=== PATIENT | female | born 1940 | race Caucasian/White ===

== ENCOUNTER 2016-08-22 02:19 | Emergency (ER) | payer OTHER, MEDICARE ==
[~2016-08-22] VITALS: Ht 154.9 cm; Wt 49.9 kg
[~2016-08-22 02:19] MED LIST: ALENDRONATE SOD70 MG PO; ASPIR 8181 MG PO; CALCIUM600 MG PO; OXYCODONE5 M1 PO; PROAIR HFA0.09 MG/Ac; SPIRIVA 18 MCG18 MCG INH; ZOCOR 40MG TAB40 MG PO
[2016-08-22 02:28] VITALS: BP 147/93
--- NOTE | 2016-08-22 03:14 | ED GI/GU/ABDOMINAL COMPLAINT ---
History of Present Illness General Chief Complaint: Low Back Pain/Injury Stated Complaint: LOWER BACK PAIN\ Source: patient, old records Exam Limitations: no limitations Vital Signs & Intake/Output Vital Signs & Intake/Output Vital Signs Date Time Temp Pulse Resp B/P B/P Pulse O2 O2 Flow FiO2 Mean Ox Delivery Rate 08/22 0250 98 Room Air Room Air 08/23 227 96.3 72 16 147/93 98 Room Air Room Air Allergies Coded Allergies: NO KNOWN ALLERGIES (08/22/16) Reconcile Medications Albuterol Sulfate (Proair Hfa) 0.09 MG/Actuation NIGEL COPD (Reported) Alendronate Sodium 70 MG TAB 1 TAB PO QW BONE (Reported) in the morning, at least 30 minutes before the first food, beverage, or medication of the day Aspirin (Ecotrin) 81 MG TABLET.DR 1 TAB PO DAILY HEART (Reported) Baclofen 10 MG TABLET 1 TAB PO TIDPRN PRN muscle spasm/strain Ibuprofen 600 MG TABLET 1 TAB PO Q6PRN PRN pain with food Ondansetron (Zofran Odt) 4 MG TAB.RAPDIS 1 TAB SL TID PRN nausea Simvastatin (Zocor 40MG Tab) 40 MG TABLET 1 TAB PO QPM CHOLOSTEROL (Reported) Tiotropium Theodosia (Spiriva) 18 MCG CAP.W.DEV 1 CAP INH DAILY COPD (Reported) Tramadol HCl (Ultram) 50 MG TABLET 1-2 TAB PO Q6PRN PRN severe pain Triage Note: 75YO FEMALE TO TRI W/CO LOW BACK PAIN THAT THAT RADIATES TO FLANK AREA. Triage Nurses Notes Reviewed? yes LMP (ages 10-50): post menopausal ? n Is pt currently ? No Onset: Evening Duration: hour(s):, constant, continues in ED Timing: recent history Quality/Severity: aching, sharpness, severe, vomiting Location: left flank, right flank Radiation: epigastric Activities at Onset: rest Prior Abdominal Problems: none Past Sexual History: Unobtainable at this time Modifying Factors: Worsens With: movement. Associated Symptoms: loss of appetite, nausea/vomiting HPI: 6 hours prior to admission patient complains of bilateral low back pain described as severe achy radiating to sites worse with movement turning bending associated with nausea vomiting. She reports going grocery shopping yesterday. She denies fever chills diarrhea abdominal pain chest pain shortness of breath headache dysuria rash bleeding change in bowel bladder habit change in motor sensory function. Past History Travel History Traveled to [place] past 21 day No Medical History Any Pertinent Medical History? 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 No Review of Systems Review of Systems Constitutional: Reports: no symptoms. EENTM: Reports: no symptoms. Respiratory: Reports: no symptoms. Cardiovascular: Reports: no symptoms. GI: Reports: see HPI, nausea, vomiting. Genitourinary: Reports: no symptoms. Musculoskeletal: Reports: see HPI, back pain. Skin: Reports: no symptoms. Neurological/Psychological: Reports: no symptoms. Hematologic/Endocrine: Reports: no symptoms. Immunologic/Allergic: Reports: no symptoms. All Other Systems: Reviewed and Negative Physical Exam Physical Exam General Appearance: well developed/nourished, alert, awake, anxious, severe distress Head: atraumatic, normal appearance Eyes: Bilateral: normal appearance, PERRL, EOMI, normal inspection. Ears, Nose, Throat, Mouth: hearing grossly normal, moist mucous membrane Neck: normal inspection, supple, full range of motion, normal alignment Respiratory: normal breath sounds, chest non-tender, no respiratory distress, quiet respiration, lungs clear Cardiovascular: regular rate/rhythm, normal peripheral pulses, norml femoral pulses equa Peripheral Pulses: 4+ carotid (R), 4+ carotid (L) Gastrointestinal: normal bowel sounds, soft, non-tender, no organomegaly Back: normal inspection, decreased range of motion, no vertebral tenderness Extremities: normal range of motion, no ligament instability Neurologic/Psych: no motor/sensory deficits, awake, alert, oriented x 3, normal gait, normal mood/affect, 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 No Severe Sepsis Present: No Septic Shock Present: No Progress Differential Diagnosis: biliary colic, cholecystitis, diverticulitis, kidney stone Plan of Care: Orders Procedure Date/time Status URINALYSIS 05/05 0258 Complete LIPASE 08/22 257 Complete COMPREHENSIVE METABOLIC PANEL 08/22 257 Complete CBC WITHOUT DIFFERENTIAL 08/22 257 Complete Laboratory Tests 08/22/16 0305: Urinalysis MOD H, Urine Color STRAW, Urine Clarity HAZY H, Urine pH 7.5, Ur Specific [place] 1.020, Urine Protein TRACE H, Urine Ketones TRACE H, Urine Nitrite NEG, Urine Bilirubin NEG, Urine Urobilinogen 0.2, Ur Leukocyte Esterase NEG, Ur Microscopic SEDIMENT EXAMINED, Urine RBC 1-3, Ur Epithelial Cells RARE, Urine Hemoglobin MOD H, Urine Glucose NEG 08/22/16 0300: Anion Gap 10, Estimated GFR > 60, BUN/Creatinine Ratio 21.7, Glucose 132 H, Calcium 9.2, Total Bilirubin 1.0, AST 22, ALT 43, Alkaline Phosphatase 43, Total Protein 6.8, Albumin 4.3, Globulin 2.5, Albumin/Globulin Ratio 1.7, Lipase 115, CBC w Diff NO MAN DIFF REQ, RBC 4.55, MCV 90.7, MCH 29.9, RDW 12.8, MPV 7.4, Gran % 81.9 H, Lymphocytes % 12.9 L, Monocytes % 4.5, Eosinophils % 0.4, Basophils % 0.3, Absolute Granulocytes 8.1 H, Absolute Lymphocytes 1.3, Absolute Monocytes 0.4, Absolute Eosinophils 0, Absolute Basophils 0, PUBS MCHC 32.9 L Diagnostic Imaging: Viewed by Me: CT Scan. Discussed w/RAD: CT Scan. Radiology Impression: 1. No acute findings identified in the abdomen/pelvis. 2. Borderline enlarged lymph node adjacent to the right common iliac artery, nonspecific. 3. Cholelithiasis. 4. Colonic diverticulosis. Initial ED EKG: none Departure Departure Time of Disposition: 511 Disposition: HOME OR SELF CARE Condition: Stable Clinical Impression Primary Impression: Acute low back pain Qualifiers: Back pain laterality: bilateral Sciatica presence: without sciatica Qualified Code: M54.5 - Low back pain Secondary Impressions: Gallstones Referrals: PRIYANK BROWN,JORDAN Griffin (PCP/Family) Departure Forms: Customer Survey General Discharge Information Prescriptions: Current Visit Scripts Baclofen 1 TAB PO TIDPRN PRN muscle spasm/strain #30 TAB Ondansetron (Zofran Odt) 1 TAB SL TID PRN nausea #15 TAB Ibuprofen 1 TAB PO Q6PRN PRN pain #50 TAB with food Tramadol HCl (Ultram) 1-2 TAB PO Q6PRN PRN severe pain #30 TAB
[2016-08-22 03:19] LABS: ABSOLUTE BASOPHIL COUNT 0 /CUMM (0.0-0.2); ABSOLUTE EOSINOPHIL COUNT 0 /CUMM (0.0-0.7); ABSOLUTE GRANULOCYTE CT 8.1 /CUMM (1.4-6.5); ABSOLUTE LYMPH COUNT 1.3 /CUMM (1.2-3.4); ABSOLUTE MONOCYTE COUNT 0.4 /CUMM (0.10-0.60); BASOPHIL % 0.3 % (0.0-2.0); EOSINOPHIL % 0.4 % (0-5); GRANULOCYTE % 81.9 % (42.2-75.2); HEMATOCRIT 41.3 % (37-47); MEAN CORPUSCULAR HGB 29.9 PG (27.0-31.0); MEAN CORPUSCULAR HGB CONC 32.9 G/DL (33.0-37.0); MEAN CORPUSCULAR VOLUME 90.7 FL (81.0-99.0); MEAN PLATELET VOLUME 7.4 FL (7.4-10.4); PLATELET COUNT 242 /CUMM (130-400); RBC DISTRIBUTION WIDTH 12.8 % (11.5-14.5); RED BLOOD CELL CT 4.55 /CUMM (4.20-5.40); WHITE BLOOD CELL COUNT 9.8 /CUMM (4.8-10.8)
--- NOTE | 2016-08-22 04:57 | CT SCAN REPORT ---
EXAMINATION: CT ABDOMEN AND PELVIS WITHOUT CONTRAST CLINICAL INFORMATION: Bilateral flank pain with nausea/vomiting, history of T7 compression fracture COMPARISON: CT pelvis 09/28/2008 TECHNIQUE: Multidetector volumetric imaging was performed from the superior aspect of the liver through the pubic symphysis. Sagittal and coronal reformatted images were obtained on the technologist's workstation. DLP: 2-6.64 mGy-cm FINDINGS: LUNG BASES: The visualized lung bases are unremarkable. LIVER, GALLBLADDER, AND BILIARY TREE: The liver is normal in size, shape, and attenuation. There is a lateral left hepatic lobe cyst measuring approximately 3.0 cm in diameter. No biliary ductal dilatation is present. There is suspected layering cholelithiasis in the gallbladder. PANCREAS: Unremarkable. SPLEEN: Unremarkable. ADRENAL GLANDS: Unremarkable. KIDNEYS AND URETERS: The kidneys are normal in size, shape, and attenuation. No hydronephrosis, hydroureter, or calculi seen. No perinephric stranding. BLADDER: Unremarkable. GASTROINTESTINAL TRACT: Colonic diverticulosis is noted. No significant bowel wall thickening is seen. No evidence of bowel obstruction. Patient is suspected to be status post appendectomy ABDOMINAL WALL: No significant hernia is appreciated. LYMPH NODES: There is a borderline lymph node adjacent to the right common iliac artery on image 41/77, nonspecific. VASCULAR: There is atherosclerotic calcification along the aorta. PELVIC VISCERA: Patient is suspected to be status post hysterectomy. OSSEOUS STRUCTURES: Degenerative changes are noted, most prominently at L5-S1 including vacuum disc phenomenon. IMPRESSION: 1. No acute findings identified in the abdomen/pelvis. 2. Borderline enlarged lymph node adjacent to the right common iliac artery, nonspecific. 3. Cholelithiasis. 4. Colonic diverticulosis.
[2016-08-22] MEDS ORDERED: BACLOFEN10 M1 PO ×2 (05:14→05:29)
[2016-08-22] MEDS ORDERED: IBUPROFEN600 M1 PO ×2 (05:14→05:29)
[2016-08-22] MEDS ORDERED: ULTRAM50 M1 PO ×2 (05:14→05:29)
[2016-08-22] MEDS ORDERED: ZOFRAN ODT4 M1 SL ×2 (05:15→05:29)
[2016-09-08] MEDS ORDERED: CLONAZEPAM0.5 M2 PO (12:35)
[2016-09-08] MEDS ORDERED: INCRUSE ELLI62.5 MCG (12:35)
== END 2016-08-22 05:38 ==
LOC: ERH 02:19
PROVIDERS: Emergency Medicine
DX: K80.20 Calculus of gallbladder without cholecystitis without obstruction (principal)
CPT/HCPCS: 74176; 81001; 96361; 96374; 96375; J1885; J2405

== ENCOUNTER → 2016-09-10 | Day surgery (SDC) | payer OTHER, MEDICARE ==
[~2016-09-10] VITALS: Ht 154.9 cm; Wt 49.9 kg
[~2016-09-10] MED LIST changes: +BACLOFEN10 M1 PO; +CLONAZEPAM0.5 M2 PO; +IBUPROFEN600 M1 PO; +INCRUSE ELLI62.5 MCG; +ULTRAM50 M1 PO; +ZOFRAN ODT4 M1 SL
--- NOTE | 2016-09-10 12:32 | Operative Report ---
Operative/Inv Procedure Report Surgery Date: 09/10/16 Name of Procedure: Laparoscopic cholecystectomy Pre-Operative Diagnosis: Biliary colic Post-Operative Diagnosis: Same Estimated Blood Loss: scant Surgeon/[employer]: GEOVANNA BROWN,CORBIN Vera/Francisca YOUNGBLOOD Anesthesia: general endotracheal tube Specimens: Gallbladder Operative/Procedure Note Note: After informed consent patient is brought to the operating room and laid supine. General anesthesia was obtained and her abdomen was prepped and draped. The skin above the umbilicus infiltrated with local anesthesia and a curvilinear incision made sharply. We came down through the subcutaneous tissues bluntly and grasped the fascia with Tatiana's. A fasciotomy was created sharply and stay sutures placed. The peritoneum was entered sharply and a blunt Romero port was placed. Pneumoperitoneum was achieved. 3, 5 mm ports were placed in the epigastrium and right upper quadrant after local anesthesia was instilled and under direct vision the camera. She's placed in reverse Trendelenburg and rotated towards the left. The gallbladder is identified. It was grasped at the dome and retracted towards the head. Infundibulum was then grasped. Adhesions to the undersurface were taken down with blunt and cautery dissection. We dissected both sides the triangle Calot peritoneal tissue with cautery. The artery was medial and its normal anatomic position. It was cauterized medially to allow it to be mobilized away from the duct. Magee was cleared of areolar tissue with cautery. The arteries and duct were doubly ligated with clips. Gallbladder is removed from the fossa electrocautery. It was placed in Endo Catch bag and cinched up. Right upper quadrant was and suction irrigated normal saline. Hemostasis achieved with cautery. The ports were then removed and the gallbladder delivered and passed off the field. The fascia was closed with 0 Vicryl suture. Skin incisions closed with 4-0 Vicryl. Steri-Strips and sterile dressing applied. Sponge and needle counts are correct. CC: PRIYANK BROWN,JORDAN Griffin
== END ==
LOC: STS 03:26
DX: K80.10 Calculus of gallbladder with chronic cholecystitis without obstruction (principal); J44.9 Chronic obstructive pulmonary disease, unspecified; F17.200 Nicotine dependence, unspecified, uncomplicated; J45.909 Unspecified asthma, uncomplicated; M19.90 Unspecified osteoarthritis, unspecified site; Z79.82 Long term (current) use of aspirin
CPT/HCPCS: 88304; J0690; J2250